=== PATIENT | female | born 1985 | race Caucasian/White ===

== ENCOUNTER 2020-01-19 18:53 | Emergency (ER) | payer OTHER ==
[~2020-01-19] VITALS: Ht 167.6 cm; Wt 66.2 kg
[2020-01-19 19:04] VITALS: BP 135/84
--- NOTE | 2020-01-19 19:21 | NUR ---
34 YO F BIB SELF FOR C/C OF 6/10 LUQ PAIN X3 DAYS. PAIN RADIATES TO LEFT SIDE AND UMBILICAL REGION. PT STATES PAIN BEGAN 3 DAYS AGO AND HAS BEEN GETTING INCREASINGLY WORSE. PT DENIES FEVER, N/V/D, AND APPETITE CHANGES. BOWEL SOUNDS ARE NORMOACTIVE THROUGHOUT. LBM WAS TODAY AND WAS SOFT AND FORMED. PT STATES SHE HAS BEEN PASING GAS NORMAL. PT WAS REFFERED BY URGENT CARE AFTER NORMAL URINE DIP. PT DENIES TAKING ANY MEDICATION FOR PAIN. PT DENIES TRAVEL, COUGH, AND SOB. SAFETY MEASURES IN PLACE. BED LOCKED AND IN LOWEST POSITION. SIDE RAILS X1. NO MED HX NO RX NKA
--- NOTE | 2020-01-19 19:37 | NUR ---
lab at bedside
--- NOTE | 2020-01-19 19:52 | NUR ---
ERMD AT BEDSIDE EVALUATING PT
[2020-01-19] MEDS ORDERED: LIDOCAINE VISCOUS 2% 20 ML UDC ONE (19:58)
[2020-01-19 19:59] LABS: BASOPHILS % (AUTO) 0.2 % (0.0-2.0); EOSINOPHILS # (AUTO) 0.2 K/uL (0-0.4); EOSINOPHILS % (AUTO) 1.7 % (0.0-4.0); HEMATOCRIT 38.5 % (36-48); HEMOGLOBIN 12.9 g/dL (12.0-16.0); LYMPHOCYTES # (AUTO) 3.8 K/uL (2.5-16.5); LYMPHOCYTES % (AUTO) 37.6 % (20.5-51.1); MEAN CORPUSCULAR HEMOGLOBIN 31 pg (27-31); MEAN CORPUSCULAR HGB CONC 34 g/dL (33-37); MEAN CORPUSCULAR VOLUME 93.7 fL (80-94); MONOCYTES # (AUTO) 0.5 K/uL (0.8-1.0); MONOCYTES % (AUTO) 4.8 % (1.7-9.3); NEUTROPHILS # (AUTO) 5.6 K/uL (1.8-7.7); NEUTROPHILS % (AUTO) 55.7 % (42.2-75.2); PLATELET COUNT (AUTO) 295 K/uL (140-450); RED BLOOD CELL COUNT(AUTO) 4.11 MIL/uL (4.20-5.40)
[2020-01-19] MEDS ORDERED: ALUMINUM HYD/MAG/SIMETHICONE 30 ML UDC ONE (19:59)
[2020-01-19] MEDS ORDERED: DICYCLOMINE HCL LIQUID 10 MG/5 ML UDC ONE (20:00)
[2020-01-19 20:02] LABS: APPEARANCE,URINE CLEAR (CLEAR); BILIRUBIN,URINE NEGATIVE (NEGATIVE); BLOOD, URINE NEGATIVE (NEGATIVE); COLOR,URINE YELLOW (YELLOW); LEUKOCYTE ESTERASE ,URINE TRACE (NEGATIVE); NITRITE, URINE NEGATIVE (NEGATIVE); PH,URINE 6.5 (5.0-9.0); UGLUCOSE NEGATIVE (NEGATIVE)
[2020-01-19] MEDS: DICYCLOMINE HCL LIQUID 20 MG, ALUMINUM HYD/MAG/SIMETHICONE 30 ML, LIDOCAINE VISCOUS 2% ... PO ONE ×3 (20:09)
[2020-01-19] MEDS: KETOROLAC 30 MG/ML VIAL IM ONE (20:10)
[2020-01-19 20:14] LABS: ALBUMIN 3.4 g/dL (3.4-5.0); ANION GAP 12.2 (8-16); CARBON DIOXIDE 28.7 mmol/L (21-32); CREATININE 0.8 mg/dL (0.6-1.3); POTASSIUM 3.9 mmol/L (3.5-5.1); TOTAL BILIRUBIN 0.2 mg/dL (0.0-1.0)
[2020-01-19 20:20] LABS: RBC,URINE 0-5 /HPF (0-5)
--- NOTE | 2020-01-19 20:36 | NUR ---
PT STATES HER PAIN IS STILL 6/10 AFTER IM ADMINSTRATION OF TORODOL AND GI COCKTAIL. PT STATES HER PAIN IS NOW RADIATING TO HER L SIDE AND BACK. ERMD MADE AWARE.
[2020-01-19] MEDS: fentaNYL 0.05 MG/ML VIAL NS ONE (21:29)
--- NOTE | 2020-01-19 21:37 | NUR ---
PT TAKEN TO CT
--- NOTE | 2020-01-19 21:37 | NUR ---
PT TAKEN TO CT VIA WHEELCHAIR
--- NOTE | 2020-01-19 22:01 | NUR ---
PT RESTING IN BED COMFORTABLY. PAIN LEVEL IS NOW 4/10. ERMD AT BEDSIDE.
--- NOTE | 2020-01-19 22:15 | NUR ---
PT RESTING IN BED COMFORTABLY. EQUAL CHEST RISE AND FALL. PTS PAIN LEVEL IS STILL 4/10
[2020-01-20 00:26] VITALS: BP 139/86
--- NOTE | 2020-01-20 00:26 | NUR ---
Patient discharged with v/s stable. Written and verbal after care instructions given and explained. Patient alert, oriented and verbalized understanding of instructions. Ambulatory with steady gait. All questions addressed prior to discharge. ID band removed. Patient advised to follow up with PMD. Rx of NORCO, MYLANTA, MACROBID given. Patient educated on indication of medication including possible reaction and side effects. Opportunity to ask questions provided and answered.
== END 2020-01-20 00:02 | disposition home or self-care (01) ==
LOC: MED 18:53
DX: N83.292 Other ovarian cyst, left side (principal)
CPT/HCPCS: 36415; 74176; 80053; 81001; 81025; 83690; 85025; 87086; 96372; 99284; J1885; J3010

== ENCOUNTER 2022-12-22 17:04 | Emergency (ER) | payer OTHER ==
[~2022-12-22] VITALS: Ht 167.6 cm; Wt 65.8 kg
[2022-12-22 17:43] VITALS: BP 134/92
[2022-12-22] MEDS ORDERED: LID5T TP (18:59)
[2022-12-22] MEDS ORDERED: IBUP-2213 PO (18:59)
[2022-12-22] MEDS ORDERED: CYCL-711 PO (18:59)
[2022-12-22 19:26] VITALS: BP 129/75
--- NOTE | 2022-12-22 19:26 | NUR ---
Patient discharged with v/s stable. Written and verbal after care instructions given. Patient alert, oriented and verbalized understanding of instructions. Ambulatory with steady gait. All questions addressed prior to discharge. ID band removed. Patient advised to follow up with PMD. Rx of flexeril, lidocaine and ibuprofen given.Opportunity to ask questions provided and answered. work note handed to patient.
== END 2022-12-22 19:26 | disposition home or self-care (01) ==
LOC: MED 17:04
DX: S16.1XXA Strain of muscle, fascia and tendon at neck level, initial encounter (principal); S39.012A Strain of muscle, fascia and tendon of lower back, initial encounter; Z79.899 Other long term (current) drug therapy; V49.88XA Car occupant (driver) (passenger) injured in other specified transport accidents, initial encounter; Y93.89 Activity, other specified; Y92.89 Other specified places as the place of occurrence of the external cause; Y99.8 Other external cause status
CPT/HCPCS: 99283